=== PATIENT | female | born 1935 | race Caucasian/White ===

== ENCOUNTER 2016-12-30 10:27 | Day surgery (SDC) | payer MEDICARE, OTHER ==
[~2016-12-30] VITALS: Ht 165.1 cm; Wt 69.0 kg
[~2016-12-30 10:27] MED LIST: ALBU6.7H INH; ASCO125T PO; ASPI-973 PO; CALC600T20 PO; CARV3.122 PO; CHOL400T PO; CITA10TA9 PO; ESTR0.3T2 PO; FUR20 PO; LOM PO; LORA1TAB PO; LOSA100T29 PO; Lactated Ringer's 1,000 ML IV SCH; Lidocaine PF 2% 5 mL Inj MUC_MEMBRM PRN; Lidocaine PF 2% 5 mL Inj MUC_MEMBRM SCH; Lidocaine Topical 2% 30 mL Jelly MUC_MEMBRM PRN; METO25TA6 PO; OMEP20CA11 PO; OXYC1TAB24 PO; RANI150C4 PO; SIMV20TA4 PO; SYMINH INHALATION; TRAZ-118 PO; fentaNYL-PF 50 mCg/mL 2 mL Inj IVPUSH PRN
[2016-12-30 11:10] VITALS: BP 149/66; PULSE 56; RESP 16; O2SAT 96
[2016-12-30] MEDS ORDERED: Lidocaine PF 2% 10 mL Inj ONE (11:13)
[2016-12-30] MEDS: 0.9% Sodium Chloride 1,000 ML IV SCH ×2 (11:26→11:56)
[2016-12-30 12:00] VITALS: BP 170/72; PULSE 75; RESP 20; O2SAT 93
[2016-12-30 12:10] VITALS: BP 171/94; PULSE 73; RESP 16; O2SAT 93
[2016-12-30 12:20] VITALS: BP 153/65; PULSE 72; RESP 16; O2SAT 96
[2016-12-30 12:30] VITALS: BP 147/74; PULSE 68; RESP 16; O2SAT 93
--- NOTE | 2016-12-30 13:47 | ENDO ---
[address] [address] ENDOSCOPY PROCEDURE PATIENT: MAURICIO PASCAL : 1935 MR#: [id number] ADMIT: 12/30/2016 JOB ID: [id number] DATE OF SERVICE: 12/30/2016 PROCEDURE: Bronchoscopy. SURGEON: Lilli Dugan MD. 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 Informed consent was obtained from the patient after risks and benefits of the procedure were discussed. DESCRIPTION OF PROCEDURE: The patient gargled lidocaine. Additional lidocaine was administered via atomizer to the oropharynx. IV sedation was then administered, and the scope was passed through the mouth. Epiglottis was visualized and normal. Vocal cords were visualized and normal. Additional lidocaine was administered here topically. Scope was passed through the cords and trachea visualized. Trachea was normal in appearance. A complete bilateral airway inspection revealed normal anatomy, normal mucosa. There were a few thick white secretions at the level of the lingula. BAL was performed in the posterior segment of the right upper lobe, with 120 cc administered and only 20 cc return of clear fluid. BAL was then performed in the lingula with again 120 cc administered and almost 50 cc return fluid was clear. The patient tolerated the procedure well. SAMPLES: Bilateral lavage from right upper lobe posterior segment and lingula, total about 60 cc. FINDINGS: Normal anatomy and airways. Some secretions at the lingula. MEDICATIONS: 1. Midazolam 2 mg. 2. Fentanyl 50 mcg. 3. Saline 240 cc total for lavage. 4. Lidocaine 6 mL via atomizer and 11 mL via scope. COMPLICATIONS: None. I informed the patient and her of findings and told them I would call them with any positive culture results over the next few weeks.
== END 2016-12-30 23:59 | disposition home or self-care (01) ==
LOC: END 10:27
PROVIDERS: ATTEND Internal Medicine Critical Care Medicine
DX: J47.9 Bronchiectasis, uncomplicated (principal); I10 Essential (primary) hypertension; Z87.891 Personal history of nicotine dependence
CPT/HCPCS: 31624; 87070; 87101; 87205; 87206; 87556; G0500; J2250; J3010; J7030